=== PATIENT | female | born 1925 | race Caucasian/White ===

== ENCOUNTER 2016-12-11 10:06 | Inpatient (IN) | payer MEDICARE ==
[2016-12-11] MEDS ORDERED: Furosemide 100mg/10 ml Vial IV ONE (10:19)
--- NOTE | 2016-12-11 10:22 | ERPHSYRPT ---
- History of Present Illness Time Seen by Provider: 12/11/16 10:18 Source: patient Exam Limitations: clinical condition Patient Subjective Stated Complaint: SOB, Triage Nursing Assessment: ALERT X 3, RESPIRATIONS DEEP LABORED, LUNG SOUNDS DIMINISHED ANTERIOR AND POSTERIOR THROUGHOUT. PRODUCTIVE COUGH CLEAR MUSCUS. JUGULAR BRAXTON DISTENTION, SWELLING TATA ARMS TATA LEGS/FEET. Physician History: PATIENT WITH HISTORY OF COPD, CONGESTIVE HEART FAILURE COMPLAINS OF INCREASING DYSPNEA, PRODUCTIVE FOR 3-4 DAYS. PROGRESSIVE WORSE. HAS NO IMPROVEMENT AFTER NEBULIZERS, DENIES FEVER OR CHILLS, OR CHEST PAIN. Timing/Duration: day(s) Activities at Onset: activity Severity of Dyspnea-Max: severe Severity of Dyspnea-Current: severe Possible Cause: occasional episodes Modifying Factors: Improves With: albuterol nebulizer, coughing Associated Symptoms: cough, edema (EXERTIONAL DYSPNEA), leg swelling International travel in last 2 weeks: No Allergies/Adverse Reactions: No Known Drug Allergies Allergy (Verified 12/11/16 10:24) Home Medications: Albuterol Sulfate [Ventolin Hfa] 1 puff IH Q4HPRN PRN 10/31/16 [History] Ca/D3/Mag Ox/Zinc/Economic Development Coordinator/Alexander/Bor [Calcium 600-D3 Plus Caplet] 1 each PO DAILY [History] Diazepam 5 mg [Valium 5 MG] 5 mg PO [id number] PRN 10/31/16 [History] Fluticasone/Salmeterol [Advair 250-50 Diskus] 1 each IH BID 10/31/16 [History] Furosemide 40 mg [Lasix 40 MG] 40 mg PO DAILY 10/31/16 [History] Levothyroxine Sodium 100 Mcg [Synthroid 100 Mcg] 100 mcg PO 0600 10/31/16 [ History] Multivitamin [Eau-Yexkmn-Rdrbd] 1 each PO DAILY 10/31/16 [History] Omeprazole 20 MG [Prilosec 20 mg] 20 mg PO DAILY 10/31/16 [History] Tiotropium [place] Inhaler [Spiriva 18 Mcg/Cap Inhaler] 1 ea IH DAILY [History] Valsartan/Hydrochlorothiazide [Valsartan-Hctz 320-25 mg Tab] 1 each IN DAILY [History] Warfarin Sodium 2.5 mg [Coumadin 2.5 MG] 2.5 mg PO 1800 10/31/16 [History] Aspirin EC 325 mg [Ecotrin 325 MG] 325 mg PO DAILY 12/11/16 [History] Hx Tetanus, Diphtheria Vaccination/Date Given: Yes Hx Influenza Vaccination/Date Given: Yes Hx Pneumococcal Vaccination/Date Given: Yes Immunizations Up to Date: Yes - Review of Systems Constitutional: No Fever, No Chills Eyes: No Symptoms Ears, Nose, & Throat: No Symptoms Respiratory: Cough, Dyspnea, Dyspnea on Exertion (VALLADARES) Cardiac: Edema, No Chest Pain, No Syncope Abdominal/Gastrointestinal: No Abdominal Pain, No Nausea, No Vomiting, No Diarrhea Genitourinary Symptoms: No Symptoms, No Dysuria Musculoskeletal: No Back Pain, No Neck Pain Skin: No Symptoms, No Rash Neurological: No Symptoms, No Dizziness, No Focal Weakness, No Sensory Changes Psychological: No Symptoms Endocrine: No Symptoms All Other Systems: Reviewed and Negative - Past Medical History Pertinent Past Medical History: Yes Neurological History: Stroke Cardiac History: Arrhythmia, Hypertension Respiratory History: COPD Endocrine Medical History: Hypothyroidism Musculoskeletal History: No Pertinent History GI Medical History: No Pertinent History History: No Pertinent History Psycho-Social History: No Pertinent History Female Reproductive Disorders: No Pertinent History Other Medical History: HYPERLIKPIDEMIA, BACK PAIN - Past Surgical History Past Surgical History: Yes Neuro Surgical History: No Pertinent History Cardiac: No Pertinent History Respiratory: No Pertinent History Gastrointestinal: Appendectomy Musculoskeletal: No Pertinent History Female Surgical History: Hysterectomy - Social History Smoking Status: Former smoker Exposure to second hand smoke: No Drug Use: none Patient Lives Alone: No - Nursing Vital Signs Nursing Vital Signs: Initial Vital Signs Temperature 98.1 F Temperature Source Oral Pulse Rate 114 Respiratory Rate 22 Blood Pressure [] 151/74 Pain Intensity 0 - Physical Exam General Appearance: mild distress Eye Exam: PERRL/EOMI, other (THERE IS PERIORBITAL EDEMA) Neck Exam: normal inspection, supple, JVD (MARKED AT 45 DEGREES) Respiratory Exam: diminished breath sounds, crackles/rales (INSPIRATORY RALES 1/ 2 POSTERIOR HEMITHORAX), other (POSTERIOR CHEST WALL EDEMA T-8 TO LUMBAR AREA) Cardiovascular/Chest Exam: normal heart sounds, regular rate/rhythm, edema, JVD Abdominal/Gastrointestinal Exam: soft, normal bowel sounds (NONTENDER), No tenderness, No distention, No mass Extremity Exam: non-tender, normal range of motion, normal inspection, no calf tenderness, pedal edema (2+PRETIBAL EXTENDS TO 1+ PITTING EDEMA MID THIGH) Peripheral Pulses Exam: carotid (R): 2+, carotid (L): 2+, femoral (R): 2+, femoral (L): 2+, dorsalis-pedis (R): 2+ Neurologic Exam: alert, oriented x 3, cooperative, parquet floor layer II-XII nml as tested, sensation nml, No motor deficits Skin Exam: normal color, warm, No dry SpO2 Interpretation: borderline oxygenation SpO2: 95 Oxygen Delivery: Nasal Cannula - Course EKG Interpreted by Me: RATE, A-fib, NORMAL AXIS (RATE 86, LATERAL FLAT T WAVES) - Radiology Exams Chest X-ray Interpretation: Reviewed by me (BORDERLINE CARDIOMEGALY, PULMONARY EDEMA, SMALL BIBASILAR EFFUSIONS, SUPERIMPOSED PNEUMONIA NO COMPLETELY EXCLUDED), Discussed w/ radiologist Ordered Tests: Active Orders 24 hr Category Date Time Status Up With Assistance TOLERATED Activity 12/11/16 11:32 Ordered Admission/Status Order ROUTINE Care 12/11/16 11:33 Ordered Call Admit Doctor for Orders ROUTINE Care 12/11/16 11:32 Ordered Catheter-[place] STAT Care 12/11/16 10:19 Active Code Status Order ROUTINE Care 12/11/16 11:33 Ordered EKG-ER Only STAT Care 12/11/16 10:19 Active IV Care Q6H Care 12/11/16 11:33 Ordered Implement CHF Pathway ROUTINE Care 12/11/16 11:33 Ordered Intake and Output 09,13,18,21 Care 12/11/16 11:32 Ordered Oxygen-ED Only NASAL CANNULA 2 lpm Care 12/11/16 10:19 Active Telemetry ROUTINE Care 12/11/16 11:32 Ordered Vital Signs Q4H Care 12/11/16 11:33 Ordered Weight,Daily 0600 Care 12/11/16 11:33 Ordered Low Sodium Diet 12/11/16 Dinner Ordered CHEST 1 VIEW (PORTABLE) Stat Exams 12/11/16 10:20 Completed BLOOD CULTURE Stat Lab 12/11/16 10:36 Received BMP AM.LAB Lab 12/12/16 04:00 Ordered CBC AM.LAB Lab 12/12/16 04:00 Ordered CBC W DIFF Stat Lab 12/11/16 10:31 Completed CMP Stat Lab 12/11/16 10:31 Completed MAGNESIUM Stat Lab 12/11/16 10:31 Completed NT PRO BNP AM.LAB Lab 12/12/16 04:00 Ordered NT PRO BNP Stat Lab 12/11/16 10:31 Completed PROTIME WITH INR Stat Lab 12/11/16 10:31 Completed TROPONIN Q3H Lab 12/11/16 10:31 Completed TROPONIN Q3H Lab 12/11/16 13:30 Ordered TROPONIN Q3H Lab 12/11/16 16:30 Ordered TROPONIN Q3H Lab 12/11/16 19:30 Ordered TROPONIN Q3H Lab 12/11/16 22:30 Ordered UA Stat Lab 12/11/16 10:31 Completed Oxygen NASAL CANNULA 2 lpm RT 12/11/16 11:33 Ordered Transfer Order Routine Transfer 12/11/16 11:32 Ordered Medication Summary Generic Name Dose Route Start Last Admin Trade Name Freq PRN Reason Stop Dose Admin Furosemide 40 mg 12/11/16 17:00 Lasix 40 Mg/4 Ml IV 01/10/17 16:59 BID DIURETIC HEATH Ceftriaxone Sodium/Dextrose 50 mls @ 100 mls/hr 12/11/16 11:45 Rocephin 1 Gm-D5w 50 Ml Bag IV 01/10/17 11:44 Q24H HEATH Discontinued Medications Generic Name Dose Route Start Last Admin Trade Name Freq PRN Reason Stop Dose Admin Furosemide 60 mg 12/11/16 10:19 12/11/16 10:27 Lasix 100 Mg/10 Ml IV 12/11/16 10:20 60 mg STAT ONE Administration Furosemide Confirm 12/11/16 10:25 Lasix 100 Mg/10 Ml Administered 12/11/16 10:26 Dose 100 mg .ROUTE .STK-MED ONE Ceftriaxone Sodium/Dextrose 50 mls @ 100 mls/hr 12/11/16 10:58 12/11/16 11:06 Rocephin 1 Gm-D5w 50 Ml Bag IV 12/11/16 11:27 100 mls/hr STAT ONE Administration Ceftriaxone Sodium/Dextrose Confirm 12/11/16 11:03 Rocephin 1 Gm-D5w 50 Ml Bag Administered 12/11/16 11:04 Dose 50 mls @ ud IV .STK-MED ONE Lab/Rad Data: Laboratory Result Diagrams 12/11/16 10:31 12/11/16 10:31 Laboratory Results 12/11/16 12/11/16 12/11/16 Range/Units 10:31 10:31 10:31 WBC (4.0-10.5) K/mm3 RBC (4.1-5.4) M/mm3 Hgb (12.0-16.0) gm/dl Hct (35-47) % MCV (78-100) fl MCH (26-32) pg MCHC (32-36) g/dl RDW (11.5-14.0) % Plt Count (150-450) K/mm3 MPV (6-9.5) fl Gran % (36.0-66.0) % Lymphocytes % (24.0-44.0) % Monocytes % (0.0-12.0) % Eosinophils % (0.00-5.0) % Basophils % (0.0-0.4) % Basophils # (0-0.4) INR 1.75 (0.8-3.0) Sodium (136-145) mEq/L Potassium (3.5-5.1) mEq/L Chloride (98-107) mEq/L Carbon Dioxide (21-32) mEq/L Anion Gap (5-15) MEQ/L BUN (9-20) mg/dL Creatinine (0.55-1.30) mg/dl Estimated GFR ML/MIN Glucose (70-110) MG/DL Calcium (8.5-10.1) mg/dL Magnesium (1.8-2.4) mg/dL Total Bilirubin (0.2-1.0) mg/dL AST (15-37) U/L ALT (12-78) U/L Alkaline Phosphatase (46-116) U/L Troponin I < 0.017 (0.000-0.056) ng/ml NT-Pro-B Natriuret Pep (0-450) pg/ml Serum Total Protein (6.4-8.2) gm/dL Albumin (3.4-5.0) g/dL Ur Collection Type CATH Urine Color YELLOW (YELLOW) Urine Appearance CLEAR (CLEAR) Urine pH 7.0 (5-6) Ur Specific Uri[place] 1.020 (1.005-1.025) Urine Protein NEGATIVE (Negative) Urine Glucose (UA) NEGATIVE (NEGATIVE) mg/dL Urine Ketones NEGATIVE (NEGATIVE) Urine Nitrite NEGATIVE (NEGATIVE) Urine Bilirubin NEGATIVE (NEGATIVE) Urine Urobilinogen 0.2 (0-1) mg/dL Urine WBC (Auto) NEGATIVE (NEGATIVE) Urine RBC (Auto) NEGATIVE (0-5) Edd/ul Specimen Received 12/11/16 1030 12/11/16 12/11/16 Range/Units 10:31 10:31 WBC 8.1 (4.0-10.5) K/mm3 RBC 4.96 (4.1-5.4) M/mm3 Hgb 14.6 (12.0-16.0) gm/dl Hct 47.5 H (35-47) % MCV 95.8 (78-100) fl MCH 29.4 (26-32) pg MCHC 30.7 L (32-36) g/dl RDW 14.0 (11.5-14.0) % Plt Count 253 (150-450) K/mm3 MPV 10.1 H (6-9.5) fl Gran % 65.6 (36.0-66.0) % Lymphocytes % 23.8 L (24.0-44.0) % Monocytes % 7.9 (0.0-12.0) % Eosinophils % 2.5 (0.00-5.0) % Basophils % 0.2 (0.0-0.4) % Basophils # 0.02 (0-0.4) INR (0.8-3.0) Sodium 143 (136-145) mEq/L Potassium 3.7 (3.5-5.1) mEq/L Chloride 103 (98-107) mEq/L Carbon Dioxide 33.0 H (21-32) mEq/L Anion Gap 10.3 (5-15) MEQ/L BUN 31 H (9-20) mg/dL Creatinine 0.80 (0.55-1.30) mg/dl Estimated GFR > 60 ML/MIN Glucose 108 (70-110) MG/DL Calcium 8.8 (8.5-10.1) mg/dL Magnesium 1.7 L (1.8-2.4) mg/dL Total Bilirubin 0.5 (0.2-1.0) mg/dL AST 31 (15-37) U/L ALT 25 (12-78) U/L Alkaline Phosphatase 85 (46-116) U/L Troponin I (0.000-0.056) ng/ml NT-Pro-B Natriuret Pep 1190 H (0-450) pg/ml Serum Total Protein 7.1 (6.4-8.2) gm/dL Albumin 3.4 (3.4-5.0) g/dL Ur Collection Type Urine Color (YELLOW) Urine Appearance (CLEAR) Urine pH (5-6) Ur Specific Uriah (1.005-1.025) Urine Protein (Negative) Urine Glucose (UA) (NEGATIVE) mg/dL Urine Ketones (NEGATIVE) Urine Nitrite (NEGATIVE) Urine Bilirubin (NEGATIVE) Urine Urobilinogen (0-1) mg/dL Urine WBC (Auto) (NEGATIVE) Urine RBC (Auto) (0-5) Edd/ul Specimen Received - Progress Progress Note: 12/11/16 10:34-PATIENT DOES NOT QUALIFY FOR SEPSIS PROTOCOL DUE TO FLUID OVER LOAD, CONGESTIVE HEART FAILURE WITH PITTING EDEMA, PATIENT GIVEN HI CATHETER AND LASIX 60MG IV 12/11/16 11:30-DIURESIS OF 1300ML URINE Discussed with : James Will see patient in: hospital (full admit) (AT 1125) - Departure Time of Disposition: 11:40 Departure Disposition: In-patient Admission Clinical Impression: ACUTE CONGESTIVE HEART FAILURE, EXACERBATION COPD Condition: Stable Critical Care Time: No Referrals: ISAC TURNER [Primary Care Provider] -
[2016-12-11] MEDS ORDERED: Furosemide 100mg/10 ml Vial ONE (10:25)
[2016-12-11 10:53] LABS: BASOPHIL % 0.2 % (0.0-0.4); Collection Type CATH; Eosinophil % 2.5 % (0.00-5.0); Granulocytes % 65.6 % (36.0-66.0); Lymphocytes % 23.8 % (24.0-44.0); Mean Cell Volume 95.8 fl (78-100); Mean Corpuscular Hemoglobin 29.4 pg (26-32); Mean Platelet Volume 10.1 fl (6-9.5); Monocytes % 7.9 % (0.0-12.0); Platelet Count 253 K/mm3 (150-450); Red Blood Count 4.96 M/mm3 (4.1-5.4); White Blood Count 8.1 K/mm3 (4.0-10.5)
[2016-12-11 10:54] LABS: COMPLETE URINE MICROSCOPIC? NO
[2016-12-11] MEDS ORDERED: ROCEPHIN 1 Gm-D5w 50 ml Bag** 50 ML IV ONE ×2 (10:58→11:03)
--- NOTE | 2016-12-11 11:01 | XRAY ---
Indication: Chronic dyspnea. Comparison: December 01, 2016. Portable chest unchanged again demonstrating borderline cardiomegaly, pulmonary edema, and small bibasilar effusions again favoring cardiac decompensation. Superimposed pneumonia not completely excluded. No new cardiopulmonary abnormalities.
[2016-12-11 11:19] LABS: ALBUMIN 3.4 g/dL (3.4-5.0); ALKALINE PHOSPHATASE 85 U/L (46-116); ANION GAP 10.3 MEQ/L (5-15); BILIRUBIN,TOTAL 0.5 mg/dL (0.2-1.0); BLOOD UREA NITROGEN 31 mg/dL (9-20); CHLORIDE 103 mEq/L (98-107); Glucose 108 MG/DL (70-110); MAGNESIUM 1.7 mg/dL (1.8-2.4); Potassium 3.7 mEq/L (3.5-5.1); SGOT/AST 31 U/L (15-37); SGPT/ALT 25 U/L (12-78); SODIUM 143 mEq/L (136-145); Total Protein 7.1 gm/dL (6.4-8.2)
[2016-12-11 11:23] LABS: INR 1.75 (0.8-3.0); PROTIME 19.3 SECONDS (9.95-12.35)
[2016-12-11] MEDS ORDERED: ROCEPHIN 1 Gm-D5w 50 ml Bag** 50 ML IV SCH (11:45)
[2016-12-11] MEDS ORDERED: DUONEB 0.5-3 MG/3 ml Neb IH PRN (12:25)
[2016-12-11] MEDS ORDERED: PROVENTIL 2.5 MG/3 ML NEB IH PRN (12:25)
[2016-12-11] MEDS ORDERED: Magnesium Sulfate 1 GM/2 ML VIAL IV ONE (13:00)
[2016-12-11] MEDS ORDERED: SENOKOT 8.6 MG PO PRN (13:09)
--- NOTE | 2016-12-11 13:34 | HP ---
HISTORY OF PRESENT ILLNESS: This is an 89 year-old patient of Dr. Tsai's who presented by ambulance to the emergency department this morning. The patient reports that she just could not breathe very well last night. Her granddaughter reports that she went to see her at [facility] where she lives last night and she already had her oxygen on when she usually only wears it at night. The patient reports that she just felt like she could not breathe well. She has been tired, swollen and has not had any energy. Of note, she was recently in the hospital the end of October with congestive heart failure exacerbation. She also saw Dr. Tsai on 12/01/2016 for follow up. She was started on Lasix after her initial hospitalization. Dr. Tsai told them that she could take that twice a day if she needed to. She had a chest x-ray done in November that was read as pulmonary edema, cardiomegaly, small bibasilar effusion, favoring cardiac decompensation. The patient's granddaughter does not think they ever called with the results and no changes were made in the medication. The patient was given 60 mg IV Lasix in the emergency room and the emergency room physician reported they were able to get a liter of fluid off of her and she reports feeling better. The granddaughter does not think she has had a cardiac echo recently and I cannot find any documentation of any in the past year here at [facility]. The patient reports that she does feel a little bit better after having some of the fluid taken off. REVIEW OF SYSTEMS: She occasionally has a headache at night. She denies any nausea or vomiting. She has been constipated and has not had a stool for two or three days. She denies any diarrhea. She states that her chest feels heavy and is tight. She has lower extremity edema with more edema on the left side than the right. She denies any rashes, no fever. She has had a cough that is sometimes productive. PAST MEDICAL HISTORY: Atrial fibrillation for which she takes Coumadin for. 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 Chronic obstructive pulmonary disease. History of a stroke x2. The patient reports she has left-sided weakness and numbness leftover from this. Congestive heart failure. Hypertension. PAST SURGICAL HISTORY: Hysterectomy. MEDICATIONS: Please see the home medication list. ALLERGIES: NKDA. SOCIAL HISTORY: She lives in [facility]. She denies any alcohol abuse. She quit smoking 20 years ago. FAMILY HISTORY: Noncontributory. PHYSICAL EXAMINATION: VITAL SIGNS: Temperature current 97.9F, temperature max 98.1F, heart rate 110 to 114, respiratory rate 20 to 25, blood pressure 140 to 152 over 71 to 83, weight 65.6 kg. Oxygen saturation 92 to 97% on 2 liters nasal cannula. GENERAL: The patient is lying in bed in no acute distress. Her granddaughter is at the bedside. CVS: She is tachycardic with irregularly irregular rhythm. No murmurs, gallops or rubs are appreciated. CHEST: She has decreased breath sounds bilaterally. No crackles or wheezes are appreciated. ABDOMEN: Soft with some mild epigastric tenderness. No guarding. No rigidity. Normal bowel sounds. She has a Leach catheter in place. EXTREMITIES: She has +2 swelling on her left lower extremity and trace swelling of right lower extremity. No clubbing or cyanosis. LABORATORY DATA AND TESTS: Her white blood cell count was 8.1, hemoglobin 14.6, PLT count 253,000. Creatinine 0.8. Magnesium was low at 1.7. BNP 1,190. UA was negative. Troponin was less than 0.017. Chest x-ray today was portable and said unchanged again demonstrating borderline cardiomegaly, pulmonary edema and small bibasilar effusion again favoring cardiac decompensation, superimposed pneumonia not completely excluded. No new cardiopulmonary abnormalities. ASSESSMENT AND PLAN: 1) Congestive heart failure exacerbation. I will continue with IV Lasix 40 mg IV b.i.d. and continue with accurate ins and outs, daily weight. If she is not on an TIM inhibitor already will start an TIM inhibitor, check a cardiac echo which has already been ordered and monitor her electrolytes closely. 2) Chest pain. She has serial troponins ordered and she is on telemetry. Her first troponin was negative and will continue to closely monitor this. 3) Atrial fibrillation. She is currently tachycardic. Will continue with Coumadin and daily international normalized ratio and adjust her medications as needed. 4) Hypomagnesemia. I will give her 2 gm of magnesium sulfate. 5) Code status. This was discussed with the patient and her granddaughter at the bedside and she does not want to have CPR or be placed on a ventilator if something should happen suddenly and her heart wound stop beating or if she would stop breathing. 6) Constipation. Will give her some Senna and docusate to take by mouth to try first. She does not want a suppository or enema at this time.
[2016-12-11] MEDS ORDERED: Spiriva 18 Mcg/Cap Inhaler IH SCH (14:00)
[2016-12-11] MEDS: Magnesium 1 Gm / 100 Ml D5W*** 100 ML IV SCH ×2 (14:23→15:21)
[2016-12-11] MEDS: Colace 100 MG PO SCH ×2 (14:23→21:34)
[2016-12-11 14:31] LABS: INR 1.82 (0.8-3.0)
[2016-12-11] MEDS: Lasix 40 MG/4 ML IV SCH (16:34)
[2016-12-11] MEDS ORDERED: TYLENOL 325 MG PO PRN (17:22)
[2016-12-11] MEDS ORDERED: BENADRYL 12.5 MG/5 ML PO PRN (17:28)
[2016-12-11] MEDS ORDERED: Coumadin 2.5 MG PO SCH (18:00)
[2016-12-11] MEDS: Advair Hfa 115/21 Common canister IH SCH (19:39)
[2016-12-11] MEDS ORDERED: BENADRYL 25 MG CAPSULE PO PRN (21:24)
[2016-12-11] MEDS ORDERED: BENADRYL 25 MG CAPSULE ONE (21:28)
[2016-12-11] MEDS: BENADRYL 12.5 MG/5 ML PO PRN (21:35)
[2016-12-12 05:52] LABS: Mean Cell Volume 95.8 fl (78-100); Mean Corpuscular Hemoglobin 29.3 pg (26-32); Mean Platelet Volume 10.2 fl (6-9.5); Platelet Count 244 K/mm3 (150-450); Red Blood Count 4.54 M/mm3 (4.1-5.4); Red Cell Distribution Width 13.8 % (11.5-14.0); White Blood Count 9.1 K/mm3 (4.0-10.5)
[2016-12-12 06:04] LABS: INR 1.84 (0.8-3.0); PROTIME 20.2 SECONDS (9.95-12.35)
[2016-12-12 06:17] LABS: ANION GAP 7.8 MEQ/L (5-15); Carbon Dioxide 38.2 mEq/L (21-32); Potassium 3.2 mEq/L (3.5-5.1)
[2016-12-12] MEDS: Spiriva 18 Mcg/Cap Inhaler IH SCH (07:00)
[2016-12-12] MEDS: Advair Hfa 115/21 Common canister IH SCH ×2 (07:00→18:15)
[2016-12-12] MEDS ORDERED: Valium 5 MG PO PRN (07:22)
[2016-12-12] MEDS ORDERED: Ventolin Hfa MDI IH PRN (07:22)
[2016-12-12] MEDS ORDERED: PROVENTIL COMMON CANISTER IH PRN (07:32)
--- NOTE | 2016-12-12 07:34 | ECHO ---
DATE OF PROCEDURE: 12/11/2016 CLINICAL INFORMATION: Acute congestive heart failure. The M-mode, 2D and Doppler echocardiogram including color flow Doppler shows normal contractility of the left ventricle with an ejection fraction calculated being calculated at 62%. There is moderate tricuspid regurgitation associated with moderate pulmonary hypertension with right ventricular systolic pressure of 55 mm of Mercury. The left atrium is normal at 3.6 cm in size. The aortic root is normal in size with a dimension of 2.9 cm. The left ventricle was normal in size with a dimension of 2.9 cm. There is mild concentric left ventricular hypertrophy with a septal wall thickness of 1.3 cm and left ventricular posterior wall thickness of 1.2 cm. There is aortic sclerosis with the aortic valve being trileaflet. There is mitral valvular calcification associated with trace to mild amount of mitral regurgitation present. The intraatrial septum is intact. The right atrium is mildly dilated. There is no left ventricular thrombus noted. The right ventricular systolic function appears to be normal. There is no pericardial effusion. The pulmonic valve is not well visualized. IMPRESSION: 1) NORMAL CONTRACTILITY OF THE LEFT VENTRICLE. 2) MILD CONCENTRIC LEFT VENTRICULAR HYPERTROPHY. 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 4) TRACE TO MILD MITRAL REGURGITATION.
[2016-12-12] MEDS: SYNTHROID 100 MCG PO SCH (08:06)
[2016-12-12] MEDS ORDERED: Zetia 10 MG PO SCH (10:00)
[2016-12-12] MEDS ORDERED: HYDROCHLOROTHIAZIDE IN SCH (10:00)
[2016-12-12] MEDS ORDERED: [UNRECOGNIZED DRUG - OTHER] IN SCH (10:00)
[2016-12-12] MEDS ORDERED: MULTIVITAMIN PO SCH ×2 (10:00)
[2016-12-12] MEDS ORDERED: DIOVAN 80 MG PO SCH (10:00)
[2016-12-12] MEDS ORDERED: VALSARTAN IN SCH (10:00)
[2016-12-12] MEDS ORDERED: [UNRECOGNIZED DRUG - OTHER] PO SCH (10:00)
[2016-12-12] MEDS ORDERED: NON-FORMULARY ITEM (Omeprazole 20 Mg [Prilosec 20 Mg] 20 MG) PO SCH (10:00)
[2016-12-12] MEDS ORDERED: hydroDIURIL 25 MG PO SCH (10:00)
[2016-12-12] MEDS: Calcium 500MG W/Vit D Tablet PO SCH (10:33)
[2016-12-12] MEDS: Cardizem CD 180 MG PO SCH (10:33)
[2016-12-12] MEDS: THERAGRAN MULTIVITAMIN PO SCH (10:33)
[2016-12-12] MEDS: VITAMIN D PO SCH (10:33)
[2016-12-12] MEDS: Colace 100 MG PO SCH ×2 (10:33→21:36)
[2016-12-12] MEDS: Protonix 40MG Tablet PO SCH (10:34)
[2016-12-12] MEDS: Ecotrin 325 MG PO SCH (10:34)
[2016-12-12] MEDS: Lasix 40 MG/4 ML IV SCH ×2 (10:52→17:37)
[2016-12-12] MEDS: ROCEPHIN 1 Gm-D5w 50 ml Bag** 50 ML IV SCH (10:52)
[2016-12-12] MEDS: NORVASC 5 MG PO SCH (13:46)
[2016-12-12] MEDS ORDERED: Coumadin 3 MG PO SCH (18:00)
[2016-12-12] MEDS: BENADRYL 12.5 MG/5 ML PO PRN (21:53)
[2016-12-13] MEDS: SYNTHROID 100 MCG PO SCH (06:00)
[2016-12-13 06:03] LABS: INR 2.12 (0.8-3.0); PROTIME 23.2 SECONDS (9.95-12.35)
[2016-12-13] MEDS: Spiriva 18 Mcg/Cap Inhaler IH SCH (06:54)
[2016-12-13] MEDS: Advair Hfa 115/21 Common canister IH SCH (06:54)
[2016-12-13 07:01] VITALS: O2SAT 95
[2016-12-13 07:45] VITALS: BP 118/56; PULSE 71
--- NOTE | 2016-12-13 07:57 | PCM.DCORD ---
- Discharge Discharge Date: 12/13/16 Disposition: Skilled Care @ [facility] Condition: Good Prescriptions: New Warfarin Sodium 3 mg [Coumadin 3 MG] 3 mg PO DAILY #0 tablet Continue Tiotropium [place] Inhaler [Spiriva 18 Mcg/Cap Inhaler] 1 ea IH DAILY Omeprazole 20 MG [Prilosec 20 mg] 20 mg PO DAILY Diazepam 5 mg [Valium 5 MG] 5 mg PO BID Ca/D3/Mag Ox/Zinc/Bin Tripper Operator/Alexander/Bor [Calcium 600-D3 Plus Caplet] 1 each PO DAILY Fluticasone/Salmeterol [Advair 250-50 Diskus] 1 each IH BID Albuterol Sulfate [Ventolin Hfa] 1 puff IH Q4HPRN PRN PRN Reason: Shortness Of Breath/Wheezing Levothyroxine Sodium 100 Mcg [Synthroid 100 Mcg] 100 mcg PO 0600 Multivitamin [Acy-Ejaggz-Dgkit] 1 each PO DAILY Aspirin EC 325 mg [Ecotrin 325 MG] 325 mg PO DAILY Cholecalciferol (Vitamin D3) [Vitamin D3] 1,000 unit PO DAILY Potassium Chloride 1 cap PO DAILY B2/Vit A,C & E/Lut/Zeaxanth/Mn [Icaps Tablet] 1 tab PO DAILY Amlodipine Besylate 5 mg [Norvasc 5 mg] 5 mg PO DAILY Changed Furosemide 40 mg [Lasix 40 MG] 40 mg PO BID #0 Discontinued Warfarin Sodium 2.5 mg [Coumadin 2.5 MG] 2.5 mg PO 1800 Additional Instructions: Have labs drawn next week: BMP and PT INR, Follow up in office in 2 weeks Follow up with: ISAC TURNER [Primary Care Provider] - Forms: Patient Portal Information
[2016-12-13] MEDS: Calcium 500MG W/Vit D Tablet PO SCH (08:08)
[2016-12-13] MEDS: Colace 100 MG PO SCH (08:08)
[2016-12-13] MEDS: Lasix 40 MG/4 ML IV SCH (08:08)
[2016-12-13] MEDS: THERAGRAN MULTIVITAMIN PO SCH (08:08)
[2016-12-13] MEDS: Cardizem CD 180 MG PO SCH (08:08)
[2016-12-13] MEDS: Protonix 40MG Tablet PO SCH (08:09)
[2016-12-13] MEDS: VITAMIN D PO SCH (08:09)
[2016-12-13] MEDS: ROCEPHIN 1 Gm-D5w 50 ml Bag** 50 ML IV SCH (08:09)
[2016-12-13] MEDS: Ecotrin 325 MG PO SCH (08:09)
[2016-12-13] MEDS: NORVASC 5 MG PO SCH (08:09)
== END 2016-12-13 09:30 | disposition home health service (06) | DRG 293 ==
LOC: ED 10:06 → MED SURG 12:01
PROVIDERS: ADMIT Family Medicine; ATTEND Family Medicine
DX: I50.31 Acute diastolic (congestive) heart failure (principal); R07.9 Chest pain, unspecified; I48.91 Unspecified atrial fibrillation; E83.42 Hypomagnesemia; K59.00 Constipation, unspecified; I10 Essential (primary) hypertension; J44.9 Chronic obstructive pulmonary disease, unspecified; Z99.81 Dependence on supplemental oxygen; Z79.01 Long term (current) use of anticoagulants; Z79.899 Other long term (current) drug therapy
CPT/HCPCS: 36415; 51702; 71010; 80048; 80053; 81002; 83735; 83880; 84484; 85025; 85027; 85610; 87040; 93005; 93041; 93306; 94640; 94760; 96365; 96374; 99284; J0696; J1940; J3475